=== PATIENT | male | born 2000 | race Caucasian/White ===

== ENCOUNTER 2024-07-12 17:56 | Emergency (ER) | payer OTHER ==
[~2024-07-12] VITALS: Ht 185.4 cm; Wt 77.1 kg
[~2024-07-12 17:56] MED LIST: AMOX50SU PO; HYDACE7.5L PO; Percocet 5-3251 EACH PO
[2024-07-12 18:18] VITALS: BP 122/86
== END 2024-07-12 18:45 | disposition home or self-care (01) ==
LOC: ER 17:56
DX: J06.9 Acute upper respiratory infection, unspecified (principal); Z88.8 Allergy status to other drugs, medicaments and biological substances
CPT/HCPCS: 99283